=== PATIENT | female | born 1945 | race Caucasian/White ===

== ENCOUNTER 2019-04-29 11:43 | Emergency (ER) | payer MEDICARE ==
[~2019-04-29] VITALS: Ht 160 cm; Wt 72.6 kg
[~2019-04-29 11:43] MED LIST: ATORVASTATIN CA40 MG PO; BAYER CHEWABLE81 MG PO; MOTION RELIEF25 MG PO; NORCO 5-325 TA1 EACH PO; ZESTORETIC 10-1 EACH PO
[2019-04-29] MEDS ORDERED: LIDODERM1 EACH TOP (13:34)
[2019-04-29 13:44] VITALS: BP 120/90
== END 2019-04-29 13:44 | disposition home or self-care (01) ==
LOC: M.ERS 11:43
DX: S20.212A Contusion of left front wall of thorax, initial encounter (principal); R93.5 Abnormal findings on diagnostic imaging of other abdominal regions, including retroperitoneum; I10 Essential (primary) hypertension; E78.5 Hyperlipidemia, unspecified; Z90.49 Acquired absence of other specified parts of digestive tract; Z90.89 Acquired absence of other organs; W18.39XA Other fall on same level, initial encounter; Y93.89 Activity, other specified; Y92.89 Other specified places as the place of occurrence of the external cause; Y99.8 Other external cause status

== ENCOUNTER 2020-07-09 10:18 | Emergency (ER) | payer MEDICARE ==
[~2020-07-09] VITALS: Ht 160 cm; Wt 81.4 kg
[~2020-07-09 10:18] MED LIST changes: +LIDODERM1 EACH TOP
[2020-07-09] MEDS ORDERED: NORCO5 PO (12:09)
[2020-07-09] MEDS ORDERED: IBUPROFEN 800800 M1 PO (12:09)
[2020-07-09 12:43] VITALS: BP 164/84
== END 2020-07-09 12:45 | disposition home or self-care (01) ==
LOC: M.ERS 10:18
DX: S16.1XXA Strain of muscle, fascia and tendon at neck level, initial encounter (principal); S39.012A Strain of muscle, fascia and tendon of lower back, initial encounter; J92.9 Pleural plaque without asbestos; M47.892 Other spondylosis, cervical region; I10 Essential (primary) hypertension; E78.5 Hyperlipidemia, unspecified; Z90.49 Acquired absence of other specified parts of digestive tract; Z90.89 Acquired absence of other organs; W18.39XA Other fall on same level, initial encounter; Y93.89 Activity, other specified; Y92.89 Other specified places as the place of occurrence of the external cause; Y99.8 Other external cause status